=== PATIENT | male | born 1995 | race Caucasian/White ===

== ENCOUNTER 2020-11-11 23:05 | Emergency (ER) | payer MEDICAID ==
[~2020-11-11] VITALS: Ht 188 cm; Wt 78.0 kg
[2020-11-11] MEDS ORDERED: ONDANSETRON ODT 4 MG ONE (23:07)
[2020-11-11] MEDS ORDERED: PLEASE ENTER ALLERGIES MC SCH (23:30)
[2020-11-11] MEDS ORDERED: SODIUM CHLORIDE 0.9% 1,000ML IVBOLUS ONE (23:30)
[2020-11-11] MEDS ORDERED: SODIUM CHLORIDE FLUSH 10ML SYR IVF ONE (23:30)
[2020-11-11] MEDS ORDERED: ONDANSETRON 2MG/ML, 2ML IVPush ONE (23:30)
[2020-11-11 23:33] LABS: BASOPHILS % (AUTO) 1 % (0-1); EOSINOPHILS % (AUTO) 2 % (1-7); LYMPHOCYTES % (AUTO) 42 % (22-44); MEAN CORPUSCULAR HEMOGLOBIN 32.2 pg (27.5-34.5); MEAN CORPUSCULAR HGB CONC 34.4 g/dL (33.2-36.2); MONOCYTES % (AUTO) 8 % (2-9); NEUTROPHILS % (AUTO) 47 % (42-75); PLATELET COUNT 196 x10^3/uL (130-400); RED BLOOD COUNT 4.68 x10^6/uL (4.38-5.82); RED CELL DISTRIBUTION WIDTH 13.6 % (9.4-14.8)
[2020-11-11 23:34] LABS: MD NO
--- NOTE | 2020-11-11 23:35 | NUR ---
IV STARTED AND LABS DRAWN. IV FLUIDS INFUSING AT THIS TIME. VSS AND WILL CONT TO MONITOR.
[2020-11-11 23:42] LABS: ALANINE AMINOTRANSFERASE 24 U/L (12-78); ALBUMIN 4.3 g/dL (3.4-5.0); ANION GAP 8 mmol/L (5-15); CALCIUM 8.4 mg/dL (8.5-10.1); CHLORIDE 108 mmol/L (98-107); CREATININE 1.03 mg/dL (0.7-1.3)
[2020-11-11 23:44] LABS: ALKALINE PHOSPHATASE 74 U/L (45-117); BILIRUBIN,TOTAL 0.4 mg/dL (0.2-1.0); TOTAL PROTEIN 7.6 g/dL (6.4-8.2)
--- NOTE | 2020-11-12 00:24 | NUR ---
PT SLEEPING ON GURNEY, VSS. IV CONT INFUSING. NO ADDTIONAL NEEDS EXPRESSED AT THIS TIME. PT STATES "I JUST WANT THE [employer] TO WIN IT [employer]".
--- NOTE | 2020-11-12 01:42 | NUR ---
Report from [place]. [facility] care.
--- NOTE | 2020-11-12 01:45 | NUR ---
Pt sleeping, breathing non-labored, equal chest rise and fall.
--- NOTE | 2020-11-12 02:06 | NUR ---
RN at bedside. NS infusion complete. Pt sleeping. Breathing non-labored.
[2020-11-12 03:01] VITALS: BP 103/62
--- NOTE | 2020-11-12 03:06 | NUR ---
pt steady ambulating, refused taxi voucher but was agreeable for a bus pass. pt states he is staying at a hotel [place] to [facility]. vss.
--- NOTE | 2020-11-12 03:06 | NUR ---
IV removed, catheter intact, hemostasis achieved. Pt ambulating, steady equal gait.
== END 2020-11-12 03:10 | disposition home or self-care (01) ==
LOC: ED 11-12 02:08
DX: F10.129 Alcohol abuse with intoxication, unspecified (principal); R11.2 Nausea with vomiting, unspecified; Y90.0 Blood alcohol level of less than 20 mg/100 ml
CPT/HCPCS: 36415; 80053; 80320; 85025; 96361; 96374; 99283; J2405; J7030; G0480